=== PATIENT | female | born 1995 | race Caucasian/White ===

== ENCOUNTER 2017-09-01 09:32 | Emergency (ER) | payer SELFPAY ==
[2017-09-01] MEDS: ONDANSETRON PF 4 MG/2 ML VIAL. IV (10:22)
[2017-09-01] MEDS: IV NORMAL SALINE 1000ML BAG 1,000 ML IV (10:22)
[2017-09-01 10:27] LABS: BILIRUBIN,URINE NEGATIVE (NEG); CLARITY,URINE CLEAR; COLOR,URINE YELLOW; GLUCOSE,URINE NEGATIVE (NEG); NITRITE,URINE NEGATIVE (NEG); PROTEIN,URINE 30 mg/dL (NEG-TRACE)
[2017-09-01 10:31] LABS: BASO # 0.1 x10^3/uL (0.0-0.2); BASO % 1 % (0-3); EOS # 0.1 x10^3/uL (0.0-0.7); EOS % 1 % (0-3); HEMATOCRIT 39.9 % (36.0-47.0); LYMPH # 0.4 x10^3/uL (1.0-4.8); LYMPH % 3 % (24-48); MEAN CORPUSCULAR HEMOGLOBIN 29 pg (25-35); MEAN CORPUSCULAR HGB CONC 33 g/dL (31-37); MEAN CORPUSCULAR VOLUME 89 fL (79-100); MONO # 0.4 x10^3/uL (0.0-1.1); MONO % 2 % (0-9); NEUT % 94 % (31-73); PLATELET COUNT 285 x10^3/uL (140-400); RED BLOOD COUNT 4.47 x10^6/uL (3.50-5.40); RED CELL DISTRIBUTION WIDTH 14.2 % (11.5-14.5); WHITE BLOOD COUNT 14.9 x10^3/uL (4.0-11.0)
[2017-09-01 10:32] LABS: ADD MAN DIFF? YES
[2017-09-01 10:38] LABS: BACTERIA,URINE MANY /HPF (0-FEW); SQUAMOUS EPITHELIAL CELL,UR MANY /LPF
[2017-09-01 10:47] LABS: ANION GAP 11 (6-14); BLOOD UREA NITROGEN 12 mg/dL (7-20); BUN/CREATININE RATIO 17 (6-20); CALCIUM 7.9 mg/dL (8.5-10.1); CARBON DIOXIDE 22 mmol/L (21-32); CHLORIDE 105 mmol/L (98-107); CREATININE 0.7 mg/dL (0.6-1.0); GFR 106.7; GLUCOSE 111 mg/dL (70-99); POTASSIUM 3.8 mmol/L (3.5-5.1); SODIUM 138 mmol/L (136-145)
[2017-09-01 10:53] LABS: ALBUMIN 3.3 g/dL (3.4-5.0); ALK PHOS 52 U/L (46-116); ALT (SGPT) 24 U/L (14-59); AST (SGOT) 16 U/L (15-37); TOTAL BILIRUBIN 0.6 mg/dL (0.2-1.0); TOTAL PROTEIN 6.7 g/dL (6.4-8.2)
[2017-09-01 11:00] LABS: % BANDS 10 % (0-9); % LYMPHS 3 % (24-48); % MONOS 2 % (0-10); % SEGS 85 % (35-66); PLT ESTIMATE ADEQUATE (ADEQUATE)
[2017-09-03 07:18] LABS: URINE HCG POC HCG POSITIVE (Negative)
== END 2017-09-01 12:05 | disposition home or self-care (01) ==
LOC: ER 09:32
DX: O21.0 Mild hyperemesis gravidarum (principal); O26.891 Other specified pregnancy related conditions, first trimester; R10.30 Lower abdominal pain, unspecified; Z88.2 Allergy status to sulfonamides; Z91.040 Latex allergy status; Z3A.01 Less than 8 weeks gestation of pregnancy
CPT/HCPCS: 36415; 76801; 80053; 81001; 81025; 85007; 85025; 87086; 96361; 96374; 99285-25; J2405; J7030

== ENCOUNTER 2018-01-10 12:29 | Emergency (ER) | payer OTHER | END 2018-01-10 13:04 | disposition home or self-care (01) | LOC: ER 12:29 | DX: O26.892 Other specified pregnancy related conditions, second trimester (principal); H65.92 Unspecified nonsuppurative otitis media, left ear; Z3A.26 26 weeks gestation of pregnancy; Z91.040 Latex allergy status; Z88.2 Allergy status to sulfonamides | CPT/HCPCS: 99283 ==

== ENCOUNTER 2018-11-16 16:29 | Emergency (ER) | payer SELFPAY ==
[~2018-11-16] VITALS: Ht 157.5 cm; Wt 99.8 kg
[~2018-11-16 16:29] MED LIST: MOME17SP NS; NITR100C62 PO; ONDA4TAB10 SL
[2018-11-16 17:50] VITALS: BP 142/79
[2018-11-16 17:52] LABS: BILIRUBIN,URINE NEGATIVE (NEG); CLARITY,URINE CLEAR; COLOR,URINE YELLOW; NITRITE,URINE NEGATIVE (NEG); PH,URINE 6.5; PROTEIN,URINE NEGATIVE (NEG-TRACE)
[2018-11-16 17:59] LABS: BACTERIA,URINE MANY /HPF (0-FEW); SQUAMOUS EPITHELIAL CELL,UR MOD /LPF; WBC,URINE RARE /HPF (0-4)
[2018-11-16 18:11] LABS: BASO % 0 % (0-3); EOS # 0.1 x10^3/uL (0.0-0.7); EOS % 1 % (0-3); HEMATOCRIT 43.7 % (36.0-47.0); HEMOGLOBIN 14.3 g/dL (12.0-15.5); LYMPH % 21 % (24-48); MEAN CORPUSCULAR HEMOGLOBIN 27 pg (25-35); MEAN CORPUSCULAR HGB CONC 33 g/dL (31-37); MEAN CORPUSCULAR VOLUME 84 fL (79-100); MONO # 0.3 x10^3/uL (0.0-1.1); MONO % 5 % (0-9); NEUT # 3.6 x10^3uL (1.8-7.7); NEUT % 72 % (31-73); PLATELET COUNT 289 x10^3/uL (140-400); RED BLOOD COUNT 5.21 x10^6/uL (3.50-5.40); RED CELL DISTRIBUTION WIDTH 14.2 % (11.5-14.5)
--- NOTE | 2018-11-16 18:15 | PHYS DOC ---
Past Medical History Past Medical History: No Pertinent History (VASILE DENNIS APRN) Past Surgical History: Tonsillectomy (VASILE DENNIS APRN) Alcohol Use: None Drug Use: None (VASILE DENNIS APRN) Adult General Chief Complaint Chief Complaint: ABDOMINAL PAIN HPI HPI 22-year-old female presents to ER via POV with complaints of mid to lower abdominal pain which is been ongoing for the past 2 days. Patient states last night pain got worse. She denies any fever, urinary symptoms, or diarrhea. She reports she's had intermittent nausea and 1 episode of vomiting since onset of symptoms. She reports she had her son in March 2018 and then had implant to her left arm for control and has not had menstrual cycle since. She reports however in the past couple of months she's had intermittent spotting and was spotting this morning. She denies soaking through pads. She denies dizziness, pelvic pressure, or other vaginal discharge or odor. (VASILE DENNIS APRN) Review of Systems Review of Systems Constitutional: Denies fever or chills [] Eyes: Denies change in visual acuity, redness, or eye pain [] HENT: Denies nasal congestion or sore throat [] Respiratory: Denies cough or shortness of breath [] Cardiovascular: No additional information not addressed in HPI [] GI: Denies bloody stools or diarrhea. Reports mid to lower abd pain with intermittent N/V. : Denies dysuria or hematuria. Reports intermittent vaginal spotting denies pelvic pressure or soaking pads today Musculoskeletal: Denies joint pain. Reports chronic back pain- denies acute changes Integument: Denies rash or skin lesions [] Neurologic: Denies headache, focal weakness or sensory changes. Denies dizziness All other systems were reviewed and found to be within normal limits, except as documented in this note. (VASILE DENNIS APRN) Current Medications Current Medications Current Medications Medications (Trade) Dose Ordered Sig/Michael Start Time Stop Time Status Last Admin Dose Admin Azithromycin (Zithromax) 1,000 mg 1X ONCE 11/16/18 19:30 11/16/18 19:33 DC 11/16/18 20:34 1,000 MG Ceftriaxone Sodium (Rocephin Im) 250 mg 1X ONCE 11/16/18 19:30 11/16/18 19:33 DC 11/16/18 20:35 250 MG (NANDA ARMENDARIZ MD) Allergies Allergies Allergies Coded Allergies Type Severity Reaction Last Updated Verified Sulfa (Sulfonamide Antibiotics) Allergy Unknown 09/01/17 Yes latex Allergy Unknown 09/01/17 Yes (NANDA ARMENDARIZ MD) Physical Exam Physical Exam Constitutional: Well developed, well nourished, no acute distress, non-toxic appearance. [] HENT: Normocephalic, atraumatic, oropharynx moist, nose normal. [] Eyes: Pupils equal, conjunctiva normal, no discharge. [] Neck: Normal range of motion, no tenderness, supple, no stridor. [] Cardiovascular:Heart rate regular rhythm, no murmur [] Lungs & Thorax: Bilateral breath sounds clear to auscultation. Resp. equal/ nonlabored Abdomen: Bowel sounds normal, soft- no distention/rigidity, tender mid to lower abd- no rebound tenderness and tenderness extends across lower abd, no masses, no pulsatile masses. [] Skin: Warm, dry, no erythema, no rash. [] Back: No tenderness, no CVA tenderness. [] Extremities: No tenderness, no cyanosis, no clubbing, ROM intact, no edema. [] Neurologic: Alert and oriented X 3, normal motor function, normal sensory function, no focal deficits noted. [] Psychologic: Affect normal, judgement normal, mood normal. [] (REFFITT,VASILE Stubbs APRN) Current Patient Data Vital Signs Vital Signs Date Time Temp Pulse Resp B/P (MAP) Pulse Ox O2 Delivery O2 Flow Rate FiO2 11/16/18 17:50 98.6 90 16 142/79 (100) 99 Room Air 98.6 (NANDA ARMENDARIZ MD) Lab Values Laboratory Tests Test 11/16/18 17:30 11/16/18 17:44 11/16/18 17:45 11/16/18 19:05 Urine Collection Type Unknown Urine Color Yellow Urine Clarity Clear Urine pH 6.5 Urine Specific [place] 1.025 Urine Protein Negative mg/dL (NEG-TRACE) Urine Glucose (UA) Negative mg/dL (NEG) Urine Ketones (Stick) Negative mg/dL (NEG) Urine Blood Large (NEG) Urine Nitrite Negative (NEG) Urine Bilirubin Negative (NEG) Urine Urobilinogen Dipstick 1.0 mg/dL (0.2 mg/dL) Urine Leukocyte Esterase Negative (NEG) Urine RBC 3-5 /HPF (0-2) Urine WBC Rare /HPF (0-4) Urine Squamous Epithelial Cells Mod /LPF Urine Bacteria Many /HPF (0-FEW) Urine Mucus Marked /LPF POC Urine HCG, Qualitative Hcg negative (Negative) White Blood Count 5.0 x10^3/uL (4.0-11.0) Red Blood Count 5.21 x10^6/uL (3.50-5.40) Hemoglobin 14.3 g/dL (12.0-15.5) Hematocrit 43.7 % (36.0-47.0) Mean Corpuscular Volume 84 fL (79-100) Mean Corpuscular Hemoglobin 27 pg (25-35) Mean Corpuscular Hemoglobin Concent 33 g/dL (31-37) Red Cell Distribution Width 14.2 % (11.5-14.5) Platelet Count 289 x10^3/uL (140-400) Neutrophils (%) (Auto) 72 % (31-73) Lymphocytes (%) (Auto) 21 % (24-48) L Monocytes (%) (Auto) 5 % (0-9) Eosinophils (%) (Auto) 1 % (0-3) Basophils (%) (Auto) 0 % (0-3) Neutrophils # (Auto) 3.6 x10^3uL (1.8-7.7) Lymphocytes # (Auto) 1.0 x10^3/uL (1.0-4.8) Monocytes # (Auto) 0.3 x10^3/uL (0.0-1.1) Eosinophils # (Auto) 0.1 x10^3/uL (0.0-0.7) Basophils # (Auto) 0.0 x10^3/uL (0.0-0.2) Sodium Level 140 mmol/L (136-145) Potassium Level 3.7 mmol/L (3.5-5.1) Chloride Level 104 mmol/L (98-107) Carbon Dioxide Level 26 mmol/L (21-32) Anion Gap 10 (6-14) Blood Urea Nitrogen 11 mg/dL (7-20) Creatinine 0.8 mg/dL (0.6-1.0) Estimated GFR (Cockcroft-Gault) 90.5 BUN/Creatinine Ratio 14 (6-20) Glucose Level 93 mg/dL (70-99) Calcium Level 8.7 mg/dL (8.5-10.1) Total Bilirubin 0.4 mg/dL (0.2-1.0) Aspartate Amino Transferase (AST) 22 U/L (15-37) Alanine Aminotransferase (ALT) 34 U/L (14-59) Alkaline Phosphatase 89 U/L (46-116) Total Protein 7.8 g/dL (6.4-8.2) Albumin 3.4 g/dL (3.4-5.0) Albumin/Globulin Ratio 0.8 (1.0-1.7) L Chlamydia DNA Probe Negative (Negative) Neisseria gonorrhoeae DNA Probe Negative (Negative) Laboratory Tests 11/16/18 17:45 Laboratory Tests 11/16/18 17:45 Microbiology 11/16/18 Wet Prep - Final, Complete 11/16/18 Urine Culture - Final, Complete 11/16/18 Urine Culture Result 1 (ANG) - Final, Complete (NANDA ARMENDARIZ MD) EKG EKG [] (VASILE DENNIS APRN) Radiology/Procedures Radiology/Procedures Pelvic Exam: RN Whitney present 1900 Abdomen: Diffuse tenderness on palp. of lower abd- no focal area or distention/rigidity External Genitalia: Normal Skin-no rash or lesions Speculum: Normal vaginal mucosa, malodorous yellowish white thick discharge in vaginal vault with small amount of dark red blood at cervical os. Os was closed Bimanual: No adnexal masses- diffuse lower abd/suprabuic tenderness. No CMT (VASILE DENNIS APRN) Course & Med Decision Making Course & Med Decision Making Pertinent Labs reviewed. (See chart for details) Pt was evaluated in the ER for abdominal pain along with reports of vaginal spotting. On pelvic exam patient was found to have malodorous yellowish white thick discharge and so discussed bacterial vaginitis following exam. Patient's wet mount was negative for Trichomonas and yeast. Findings suggestive of bacterial vaginosis on wet mount. Patient has a fianc at bedside and although no concerns for STDs did send swabs for testing GC and chlamydia is pending at time of discharge. Patient advised of following up on those results in 2-3 days. Patient was treated prophylactically with Rocephin and azithromycin while in the ER and will be provided with prescription for Flagyl with discharge paperwork. Lab results were discussed and were unremarkable. UA was negative for infection and UCG was negative. Patient advised to follow-up with [facility] for reevaluation within the next 5-7 days. Patient educated on signs and symptoms to return to ER for advised that if she was unable to get into [facility] and symptoms worsen or with concerns she should return to ER for reevaluation and further care. Advised on use of [id number] Tylenol and/or ibuprofen as needed. Patient advised on vaginal rest and to use peripads versus tampons until follow-up with [facility]. Education provided on signs and symptoms to return to ER. Discharge instructions were discussed. Patient to follow-up with primary care physician if symptoms persist or with any concerns. (VASILE DENNIS APRN) Course & Med Decision Making Staff Physician Addendum: I was working in the ER during the course of this patient's visit. I was available for consultation as needed, but I was not directly involved in the care of this patient. (NANDA ARMENDARIZ MD) Dragon Disclaimer Dragon Disclaimer This electronic medical record was generated, in whole or in part, using a voice recognition dictation system. (VASILE DENNIS APRN) Departure Departure Impression: Primary Impression: Bacterial vaginitis Additional Impression: Abdominal pain Disposition: 01 HOME, SELF-CARE Condition: STABLE Referrals: WINSTON GONZALEZ APRN (PCP) Patient Instructions: Abdominal Pain, Bacterial Vaginosis Additional Instructions: Drink plenty of fluids. Avoid any objects being inserted into the vagina until completion of antibiotics and follow-up with your [facility]. Call as soon as possible to schedule follow-up appointment with [facility]. Your tests from the pelvic exam are pending and should be resulted in the next 2-3 days follow-up on those results. Tylenol and/or ibuprofen as needed for pain as directed on container. Scripts Metronidazole (FLAGYL) 500 Mg Tablet 1 TAB PO BID, #14 TAB 0 Refills Avoid alcohol intake while on this medication and for 3 days after completion Prov: VASILE DENNIS APRN 11/16/18 Problem Qualifiers VASILE DENNIS APRN Nov 16, 2018 18:15 NANDA ARMENDARIZ MD Nov 25, 2018 11:24
[2018-11-16 18:19] LABS: CALCIUM 8.7 mg/dL (8.5-10.1); CREATININE 0.8 mg/dL (0.6-1.0); GFR 90.5; POTASSIUM 3.7 mmol/L (3.5-5.1)
[2018-11-16 18:24] LABS: ALBUMIN 3.4 g/dL (3.4-5.0); ALBUMIN/GLOBULIN RATIO 0.8 (1.0-1.7); TOTAL BILIRUBIN 0.4 mg/dL (0.2-1.0); TOTAL PROTEIN 7.8 g/dL (6.4-8.2)
[2018-11-16] MEDS ORDERED: AZITHROMYCIN 250 MG TABLET. PO ONE (19:30)
[2018-11-16] MEDS ORDERED: cefTRIAXone IM 250 MG VIAL IM ONE (19:30)
[2018-11-16] MEDS ORDERED: METR500T PO (19:56)
[2018-11-18 15:20] LABS: GC PROBE Negative (Negative)
== END 2018-11-16 20:44 | disposition home or self-care (01) ==
LOC: ER 16:29
DX: N76.0 Acute vaginitis (principal); B96.89 Other specified bacterial agents as the cause of diseases classified elsewhere; R10.30 Lower abdominal pain, unspecified; R11.2 Nausea with vomiting, unspecified; Z90.89 Acquired absence of other organs; Z91.040 Latex allergy status; Z88.2 Allergy status to sulfonamides
CPT/HCPCS: 36415; 80053; 81001; 81025; 85025; 87086; 87491; 87591; 96372; 99283; J0696; Q0111; Q0144

== ENCOUNTER 2019-08-15 11:40 | Emergency (ER) | payer SELFPAY ==
[~2019-08-15] VITALS: Ht 167.6 cm; Wt 99.8 kg
[~2019-08-15 11:40] MED LIST changes: +METR500T PO
[2019-08-15 11:50] VITALS: BP 129/92
--- NOTE | 2019-08-15 12:08 | PHYS DOC ---
Past Medical History Past Medical History: No Pertinent History Past Surgical History: , Tonsillectomy Alcohol Use: None Drug Use: None Adult General Chief Complaint Chief Complaint: UPPER EXTREMITY INJURY HPI HPI Patient is a 23 year old female who presents with states was stepping over a childproof gait 2 days ago and dog's were on the other side and she tripped and fell landing on her right side. Patient has right shoulder and arm pain. She ra socorro her pain a 7 out of 10. She states that she was feeling better but has been using the arm more and now it's hurting again. Review of Systems Review of Systems Musculoskeletal: Denies back pain. Right shoulder and humerus joint pain [] All other systems were reviewed and found to be within normal limits, except as documented in this note. Allergies Allergies Allergies Coded Allergies Type Severity Reaction Last Updated Verified Sulfa (Sulfonamide Antibiotics) Allergy Unknown 09/01/17 Yes latex Allergy Unknown 09/01/17 Yes Physical Exam Physical Exam Constitutional: Well developed, well nourished, no acute distress, non-toxic appearance. [] HENT: Normocephalic, atraumatic, bilateral external ears normal, oropharynx moist, no oral exudates, nose normal. [] Eyes: PERRLA, EOMI, conjunctiva normal, no discharge. [] Neck: Normal range of motion, no tenderness, supple, no stridor. [] Cardiovascular:Heart rate regular rhythm, no murmur [] Lungs & Thorax: Bilateral breath sounds clear to auscultation [] Abdomen: Bowel sounds normal, soft, no tenderness, no masses, no pulsatile masses. [] Skin: Warm, dry, no erythema, no rash. [] Back: No tenderness, no CVA tenderness. [] Extremities: Right lateral shoulder and humerus tenderness, no cyanosis, no clubbing, ROM intact, no edema. [] Neurologic: Alert and oriented X 3, normal motor function, normal sensory function, no focal deficits noted. [] Psychologic: Affect normal, judgement normal, mood normal. [] Current Patient Data Vital Signs Vital Signs Date Time Temp Pulse Resp B/P (MAP) Pulse Ox O2 Delivery O2 Flow Rate FiO2 08/15/19 11:50 98.2 91 18 129/92 (104) 100 Room Air 98.2 Lab Values Laboratory Tests Test 08/15/19 11:59 POC Urine HCG, Qualitative Hcg negative (Negative) EKG EKG [] Radiology/Procedures Radiology/Procedures [] Impressions: [facility] [id number] [place] [address] IMAGING REPORT Signed PATIENT: BETHANY ZIEGLER ACCOUNT: [id number] : 1995 LOCATION: ER AGE: 23 SEX: F EXAM STATUS: REG ER ORD. PHYSICIAN: SHERRI HARRISON APRN REASON: fall x2 days ago. right upper extremity pain PROCEDURE: HUMERUS RIGHT AP Internal and external rotation views with Y-View of the right shoulder were performed along with 2 views of the right humerus.. Indication: Fall 2 days ago now with right upper extremity pain Comparison: None. No fracture, glenohumeral or AC joint subluxation, or significant degenerative changes are seen. The subacromial space is maintained. Impression: 1. Negative exam of the right humerus and shoulder. Electronically signed by: Duncan Tomas MD (08/15/2019 12:29 PM) [facility] [id number] DICTATED and SIGNED BY: DUNCAN TOMAS MD DATE: 08/15/[address] [id number] IMAGING REPORT Signed PATIENT: BETHANY ZIEGLER ACCOUNT: [id number] : 1995 LOCATION: ER AGE: 23 SEX: F EXAM STATUS: REG ER ORD. PHYSICIAN: SHERRI HARRISON APRN REASON: fall x2 days ago. right upper extremity pain PROCEDURE: WRIST 3V RIGHT 3 views of the right wrist without comparison. INDICATION: Fall with pain FINDINGS: No fracture, subluxation or dislocation. No significant degenerative changes. Electronically signed by: Duncan Tomas MD (08/15/2019 12:33 PM) [id number] DICTATED and SIGNED BY: DUNCAN TOMAS MD DATE: 08/15/19 1233 Course & Med Decision Making Course & Med Decision Making Right Lateral shoulder and humerus tenderness with palpation. She states if she tries to make a fist or wiggles her fingers she can feel the pain up into her upper arm. Denies any numbness or tingling. Skin pink warm and dry. Radial pulse strong and present. Cap refill less than 3 seconds. No swelling in any joints, no bruising, no laxity in joints, no deformities. Ambulatory with a steady gait. Denies hitting her head, neck pain, back pain, abdominal pain, nausea, vomiting, dizziness, visual changes. Alert and oriented. Speaks in full clear sentences. Full range of motion of the right shoulder, elbow, wrist, fingers. Can wiggle all fingers. Can make a fist. No tenderness or bruising seen to the hand or fingers. No tenderness to her back or neck with palpation. No bruising to her back or neck. Full range of motion of her neck. Dragon Disclaimer Dragon Disclaimer This electronic medical record was generated, in whole or in part, using a voice recognition dictation system. Departure Departure Impression: Primary Impression: Right shoulder pain Additional Impressions: Pain of right humerus Right wrist pain Fall Disposition: 01 HOME, SELF-CARE Condition: STABLE Referrals: WINSTON GONZALEZ APRN (PCP) Patient Instructions: Contusion, Fall Prevention and Home Safety Additional Instructions: Follow-up with her primary care provider. Use ice and ibuprofen to help with pain. Scripts Ibuprofen (IBUPROFEN) 600 Mg Tablet 600 MG PO PRN Q6HRS PRN for INFLAMMATION, #20 TAB Prov: SHERRI HARRISON APRN 08/15/19 Problem Qualifiers Primary Impression: Right shoulder pain Chronicity: acute Qualified Codes: M25.511 - Pain in right shoulder Additional Impressions: Fall Encounter type: initial encounter Qualified Codes: W19.XXXA - Unspecified fall, initial encounter SHERRI HARRISON APRN Aug 15, 2019 12:08
--- NOTE | 2019-08-15 12:32 | RAD ---
AP Internal and external rotation views with Y-View of the right shoulder were performed along with 2 views of the right humerus.. Indication: Fall 2 days ago now with right upper extremity pain Comparison: None. No fracture, glenohumeral or AC joint subluxation, or significant degenerative changes are seen. The subacromial space is maintained. Impression: 1. Negative exam of the right humerus and shoulder. Electronically signed by: Duncan Tomas MD (08/15/2019 12:29 PM) [facility]
--- NOTE | 2019-08-15 12:36 | RAD ---
3 views of the right wrist without comparison. INDICATION: Fall with pain FINDINGS: No fracture, subluxation or dislocation. No significant degenerative changes. Electronically signed by: Duncan Tomas MD (08/15/2019 12:33 PM) [facility]
[2019-08-15] MEDS ORDERED: IBUP-1007 PO (12:43)
== END 2019-08-15 12:47 | disposition home or self-care (01) ==
LOC: ER 11:40
DX: M25.511 Pain in right shoulder (principal); M25.531 Pain in right wrist; M79.621 Pain in right upper arm; Z88.2 Allergy status to sulfonamides; Z91.041 Radiographic dye allergy status; Z90.89 Acquired absence of other organs; Z98.890 Other specified postprocedural states; W01.0XXA Fall on same level from slipping, tripping and stumbling without subsequent striking against object, initial encounter; Y93.89 Activity, other specified; Y92.89 Other specified places as the place of occurrence of the external cause; Y99.8 Other external cause status
CPT/HCPCS: 73030; 73060; 73110; 81025; 99284